=== PATIENT | male | born 1970 | race Hispanic/Latino ===

== ENCOUNTER → 2018-09-14 | Outpatient (CLI) | payer MEDICARE ==
--- NOTE | 2018-09-14 12:14 | Diagnostic Imaging Report ---
TECHNIQUE: Magnetic resonance imaging of the left hindfoot was performed WITHOUT injected contrast. COMPARISON: None available. HISTORY: Osteomyelitis calcaneus FINDINGS: LIGAMENTS: Medial Complex: Deltoid intact. Lateral Complex: Lateral ankle ligaments intact. TENDONS: Medial: Posterior tibial and flexor tendons intact Lateral: Scarring of the superior retinaculum with subluxation of the peroneal longus. Split tearing of the peroneal longus. Partial tearing of the peroneal longus. Anterior: Anterior tibial and extensor tendons intact. Achilles: Achilles tendon intact. BONES: Remote fracture of the distal fibula. Mild increased signal on the calcaneus. No osteomyelitis. JOINTS: Cartilage: No focal defect is identified involving the tibiotalar joint. Other: Fluid within the joints is within physiologic limits. SOFT TISSUES: Heel ulceration. No sinus tract or abscess. IMPRESSION: Heel ulceration. No osteomyelitis. Remote healed fracture of the distal fibula with superior retinaculum prior injury/scarring with subluxation of the peroneal longus. Tendinopathy and partial tearing of the peroneal longus and brevis. Signed by: Dr. Flakito Garnica M.D. on 09/14/2018 12:11 PM
== END ==
LOC: MRI 10:23 → EDSEX 10:23
PROVIDERS: ATTEND Podiatrist Foot & Ankle Surgery
DX: M86.8X7 Other osteomyelitis, ankle and foot (principal)